=== PATIENT | male | born 1995 | race Caucasian/White ===

== ENCOUNTER → 2018-08-30 | Outpatient (CLI) | payer MEDICAID ==
[~2018-08-30] MED LIST: CELE10TA PO; PAXI20TA3 PO; no home medications
== END ==
LOC: M OUTALCOH 09:21
PROVIDERS: ATTEND Psychiatry & Neurology Psychiatry
DX: F12.20 Cannabis dependence, uncomplicated (principal)

== ENCOUNTER 2018-10-05 10:00 | Outpatient (RCR) | payer MEDICAID | END 2018-10-08 | LOC: M OUTALCOH 10:00 | PROVIDERS: ATTEND Psychiatry & Neurology Psychiatry | DX: F12.10 Cannabis abuse, uncomplicated (principal) ==

== ENCOUNTER 2018-10-20 14:00 | Outpatient (RCR) | payer MEDICAID | END 2018-11-07 | LOC: M OUTALCOH 14:00 | PROVIDERS: ATTEND Psychiatry & Neurology Psychiatry | DX: F12.10 Cannabis abuse, uncomplicated (principal) ==

== ENCOUNTER 2020-04-01 13:55 | Emergency (ER) | payer MEDICAID, OTHER ==
[~2020-04-01] VITALS: Ht 170.2 cm; Wt 101.8 kg
--- NOTE | 2020-04-01 14:25 | REPVR ---
PROCEDURE INFORMATION: Exam: XR Right Ankle Exam date and time: 04/01/2020 2:14 PM Age: 25 years old Clinical indication: Injury or trauma; Fall; Initial encounter; Blunt trauma; Ankle; Right TECHNIQUE: Imaging protocol: XR Right ankle. Views: 3 or more views. COMPARISON: No relevant prior studies available. FINDINGS: Bones/joints: No acute fracture. No dislocation. Soft tissues: Lateral soft tissue swelling. IMPRESSION: No acute osseous abnormality. Electronically signed by: Elsi Hollingsworth On 04/01/2020 14:25:48 PM
[2020-04-01] MEDS ORDERED: IBUPROFEN 800 MG TAB PO ONE (14:30)
--- NOTE | 2020-04-01 14:47 | REPVR ---
PROCEDURE INFORMATION: Exam: XR Right Foot Complete Exam date and time: 04/01/2020 2:36 PM Age: 25 years old Clinical indication: Injury or trauma; Fall; Initial encounter; Sprain or strain; Foot; Right; Additional info: R 5th metacarpal ttp TECHNIQUE: Imaging protocol: XR Right foot. Views: 3 or more views. COMPARISON: CR Ankle, complete RIGHT 04/01/2020 2:03 PM FINDINGS: Bones/joints: No acute fracture. No dislocation. Soft tissues: Normal. IMPRESSION: No acute osseous abnormality. Electronically signed by: Elsi Hollingsworth On 04/01/2020 14:46:57 PM
[2020-04-01 15:03] VITALS: BP 138/83
== END 2020-04-01 15:17 | disposition home or self-care (01) ==
LOC: M ED 13:55
DX: S93.401A Sprain of unspecified ligament of right ankle, initial encounter (principal); W14.XXXA Fall from tree, initial encounter; Y92.9 Unspecified place or not applicable; Y93.9 Activity, unspecified; Y99.9 Unspecified external cause status; F12.10 Cannabis abuse, uncomplicated